=== PATIENT | female | born 1975 | race Two or more races ===

== ENCOUNTER 2023-11-17 10:22 | Emergency (ER) | payer OTHER ==
[~2023-11-17] VITALS: Ht 170.2 cm; Wt 68.9 kg
== END 2023-11-17 14:28 | disposition home or self-care (01) ==
LOC: ER 10:24
DX: S00.93XA Contusion of unspecified part of head, initial encounter (principal); W18.39XA Other fall on same level, initial encounter; Y93.89 Activity, other specified; Y92.89 Other specified places as the place of occurrence of the external cause; Y99.9 Unspecified external cause status